=== PATIENT | male | born 1945 | race African-American/Black ===

== ENCOUNTER 2018-11-24 18:09 | Observation (INO) | payer MEDICARE, MEDICAID ==
[2018-11-24] MEDS ORDERED: Dextrose 5% in Water 1,000 ML IV PRN (20:39)
[2018-11-24] MEDS ORDERED: HumaLOG 300 UNITS/3 ML VIAL SC PRN (20:39)
[2018-11-24] MEDS ORDERED: Dextrose 50% Abboject 50 ML SYRINGE SLOW IVP PRN (20:39)
[2018-11-24] MEDS ORDERED: Ondansetron ODT 4 MG TAB PO PRN (20:39)
[2018-11-24] MEDS ORDERED: Acetaminophen 650 MG Suppository PR PRN (20:39)
[2018-11-24] MEDS ORDERED: Ondansetron PF 4 MG/2 ML Vial IVP PRN (20:39)
[2018-11-24] MEDS ORDERED: Morphine 4 MG/ML VIAL ONE (21:09)
--- NOTE | 2018-11-24 21:38 | HP ---
PRIMARY CARE DOCTOR: For this patient is Dr. Caroline Cat. CODE STATUS: Full code. TIME OF EVALUATION: 7:35 p.m. CHIEF COMPLAINT: Chest pain. HISTORY OF PRESENT ILLNESS: A 73-year-old male patient with past medical history of GERD, asthma, diabetes, hypertension, came to the hospital after having chest pain that was in the middle of the chest on and off when severe could be 7/10 that started yesterday radiating down to the left arm, admitted for gradually getting worse. No nausea. No vomiting. No clear triggers. No alleviating factors except for medications given here. REVIEW OF SYSTEMS: CONSTITUTIONAL: No fever, chills, or generalized weakness. RESPIRATORY: No cough, sputum production, or shortness of breath. CARDIOVASCULAR: Chest pain. No palpitation. GASTROINTESTINAL: No nausea, vomiting, diarrhea, or abdominal pain. APPLICATION HELPER: No dizziness, headache, or feeling lightheaded. GENITOURINARY: No burning urination. EXTREMITIES: No leg swelling. All other systems were reviewed and negative except for the findings mentioned above. PAST MEDICAL HISTORY: As mentioned in the HPI. PAST SURGICAL HISTORY: Hernia repair, spinal surgery, and orthopedic surgery left knee. PSYCHIATRIC HISTORY: No previous psych history. SOCIAL HISTORY: The patient drinks socially. Denies drug use. Former tobacco user. The patient quit smoking more than 10 years ago. ALLERGIES: NO KNOWN DRUG ALLERGIES REPORTED. MEDICATIONS: 1. Januvia. 2. Clonidine. 3. Nifedipine. PHYSICAL EXAMINATION: VITAL SIGNS: On presentation; blood pressure 131/69 with heart rate 79, respiratory rate was 18, temperature 98.2, pain 4/10, and oxygen saturation was 99% on room air. GENERAL: The patient is alert, oriented, not in acute distress. HEENT: Eyes, normal conjunctiva. Moist oral mucosa. Anicteric. No JVD. RESPIRATORY: Bilateral air entry. No rales, wheezes or symmetric expansion. CARDIOVASCULAR: Normal rate, regular rhythm. No murmurs. No gallop. No edema. ABDOMEN: Soft. Normal bowel sounds. MUSCULOSKELETAL: Baseline range of motion and strength. No tenderness. SKIN: Warm, intact. No pallor. No rash. No redness. Capillary refill seems to intact. NEUROLOGIC: No evidence of any new focal weakness. Cranial nerves seems to be intact. PSYCHIATRIC: The patient is in good mood. No anxiety. Optimal judgment. IMAGING STUDIES: EKG was reviewed. The patient has normal sinus rhythm with a rate of 77, UT 206, QRS 96, and QT corrected 439. Chest x-ray was reviewed. The patient has findings likely related to lung changes, indeterminate age, procedure, right-sided rib fractures. The fractures are unchanged from prior exam. Osseous region of multiple left-sided ribs are seen again. LABORATORY DATA: Reviewed. The patient has a white count , hemoglobin 9.6, MCV 82.7, platelet count 263. Coagulation; PT 13.6, INR 1.0. Chemistry; sodium 138, potassium 4.4, chloride 102, carbon dioxide 27, anion gap 13, BUN 27, creatinine 1.57, the previous creatinine was 1.13. GFR 53, glucose 105. Hemoglobin A1c 5.1. Uric acid 7.0, calcium 8.8. LFTs were negative. Beta-natriuretic peptide 110 and lipase were normal. ASSESSMENT AND PLAN: The patient will be placed in the hospital with following medical problems. 1. Chest pain, rule out acute coronary syndrome. We will place the patient on tele monitoring. We will do troponins. Initial workup is negative, then do stress test in the morning. 2. Chronic normocytic anemia. The patient's hemoglobin will be monitored. We will treat accordingly. This is mild. 3. Acute kidney injury with current creatinine is 1.57. The previous one was 1.13. Recent increase of more than 0.3 mg/dL from previous values. We will hydrate. We will monitor creatinine and we will treat accordingly. 4. Deep venous thrombosis prophylaxis. 5. History of gastroesophageal reflux disease, reconcile home medications. 6. History of diabetes, is controlled. We will place the patient on sliding scale for optimal control. 7. Controlled hypertension, reconcile home medications. Adjust as needed. Job ID: [id number]
[2018-11-24] MEDS ORDERED: Acetaminophen 325 MG TAB ONE (22:10)
[2018-11-24] MEDS: Sodium Chloride 0.9% 1,000 ML IV SCH (22:16)
[2018-11-24] MEDS: Acetaminophen 325 MG TAB PO PRN (22:17)
[2018-11-24 22:34] LABS: Troponin I Less than 0.010 ng/mL (< 0.028)
[2018-11-25 01:24] LABS: Troponin I Less than 0.010 ng/mL (< 0.028)
[2018-11-25] MEDS ORDERED: Acetaminophen 325 MG TAB ONE ×3 (02:31→13:36)
[2018-11-25] MEDS: Acetaminophen 325 MG TAB PO PRN ×3 (02:35→13:34)
[2018-11-25 04:02] LABS: #Eosinphils 0.5 thou/uL (0.0-0.7); #Lymphocytes 1.5 thou/uL (1.20-3.40); #Monocytes 0.9 thou/uL (0.11-0.59); #Neutrophils 4.4 thou/uL (1.40-6.50); %Basophils 0.7 % (0.0-1.0); %Eosinophils 6.4 % (0.0-10.0); %Monocytes 11.9 % (0.0-10.0); Hemoglobin 10.7 g/dL (14.0-18.0); Mean Corpuscular HGB CONC 32.4 g/dL (32.0-36.0); Mean Corpuscular Hemoglobin 27.5 pg (27.0-31.0); Mean Platelet Volume 8.4 fL (7.4-10.4); Platelet Count 244 thou/uL (130-400); RBC Distribution Width 13.4 % (11.5-14.5); Red Blood Cell (RBC) Count 3.89 mill/uL (4.70-6.10); White Blood Cell (WBC) Count 7.2 thou/uL (4.8-10.8)
[2018-11-25 04:06] LABS: Anion Gap 12 mmol/L (10-20); BUN (Urea Nitrogen) 20 mg/dL (8.4-25.7); Calc. Creatinine Clearance 0 mL/min (70-130); Calcium 9.6 mg/dL (7.8-10.44); Carbon Dioxide 24 mmol/L (23-31); Chloride 107 mmol/L (98-107); Estimated GFR-MDRD 75; Glucose 94 mg/dL (83-110); Potassium 4.2 mmol/L (3.5-5.1); Sodium 139 mmol/L (136-145)
[2018-11-25] MEDS ORDERED: Enoxaparin Sodium 40 MG/0.4 ML SYRINGE SC SCH (09:00)
[2018-11-25] MEDS ORDERED: Regadenoson 0.4 MG/5 ML SYRINGE ONE (09:07)
--- NOTE | 2018-11-25 13:01 | NM ---
EXAM: Nuclear medicine cardiac perfusion examination with ejection fraction HISTORY: Chest pain TECHNIQUE: Rest images: 10.7 mCi technetium 99m sestamibi Stress images: 30.4 mCi of technetium 9M sestamibi; Lexiscan COMPARISON: None FINDINGS: Tomographic images: No fixed or reversible perfusion defects. Gated images: Normal wall motion and ejection fraction of 56%. EDV: 121 mL LHR: 0.5 TID: 0.8 IMPRESSION: No evidence of ischemia
[2018-11-25] MEDS: Sodium Chloride 0.9% 1,000 ML IV SCH (13:25)
[2018-11-25] MEDS ORDERED: cloNIDine 0.1 MG TAB PO PRN (14:03)
[2018-11-25] MEDS ORDERED: cloNIDine 0.1 MG TAB PO SCH (14:15)
[2018-11-25] MEDS ORDERED: NIFEdipine XL 90 MG TAB PO SCH (14:15)
[2018-11-25] MEDS ORDERED: cloNIDine 0.1 MG TAB ONE (14:21)
--- NOTE | 2018-11-26 07:20 | DIS ---
DATE OF ADMISSION: 11/24/2018 DATE OF DISCHARGE: 11/25/2018 DISCHARGE DISPOSITION: Home. FOLLOWUP: Follow up with primary care physician, Dr. Caroline Cat in 1 week. DISCHARGE MEDICATIONS: Same as admission medications. The patient was seen and examined on the day of discharge. Denies any new complaints. No chest pain, shortness of breath palpitations. BRIEF HOSPITAL COURSE: The patient is a 73-year-old male with asthma, diabetes mellitus type 2, hypertension, and GERD, presented to the hospital with chest discomfort. Please refer to the history and physical by Dr. Lubin for further details. The patient was admitted to the hospital with a diagnosis of chest discomfort, rule out acute coronary syndrome. His troponins remain negative. He underwent a Cardiolite stress test that was negative for reversible ischemia. TID was 0.8. His chest pain is probably musculoskeletal. He appears stable for discharge. FINAL DIAGNOSES: 1. Chest discomfort, acute coronary syndrome ruled out. 2. Negative Cardiolite stress test. 3. Chronic anemia. 4. Acute kidney injury on chronic kidney disease, stage 2, probably secondary to mild dehydration, resolved. His creatinine at discharge is 1.16 from 1.57 on admission. 5. Gastroesophageal reflux disease. 6. Diabetes mellitus, type 2. 7. Hypertension. PLAN: Plan of care was discussed with the patient in detail. He stated understanding. Job ID: [id number]
[2018-11-26] MEDS ORDERED: cloNIDine 0.1 MG TAB PO SCH (09:00)
[2018-11-26] MEDS ORDERED: NIFEdipine XL 90 MG TAB PO SCH (09:00)
--- NOTE | 2018-11-28 14:04 | EKG ---
Test Reason : CHEST PAIN Blood Pressure : / mmHG Vent. Rate : 077 BPM Atrial Rate : 077 BPM P-R Int : 206 ms QRS Dur : 096 ms QT Int : 388 ms P-R-T Axes : 042 -15 024 degrees QTc Int : 439 ms Normal sinus rhythm Normal ECG Confirmed by RENAE LEWIS DO ([id number]), news copy editor MINGO SAMANIEGO ([id number]) on 11/28/2018 2:04:30 PM Referred By: Confirmed By:RENAE LEWIS DO
== END 2018-11-25 15:50 | disposition home or self-care (01) ==
LOC: ERS 18:09 → ERHOLD 19:28
PROVIDERS: ADMIT Hospitalist; ATTEND Hospitalist
DX: R07.89 Other chest pain (principal); I12.9 Hypertensive chronic kidney disease with stage 1 through stage 4 chronic kidney disease, or unspecified chronic kidney disease; E11.22 Type 2 diabetes mellitus with diabetic chronic kidney disease; N18.2 Chronic kidney disease, stage 2 (mild); N17.9 Acute kidney failure, unspecified; D63.1 Anemia in chronic kidney disease; E86.0 Dehydration; K21.9 Gastro-esophageal reflux disease without esophagitis; J45.909 Unspecified asthma, uncomplicated; Z98.890 Other specified postprocedural states; Z87.891 Personal history of nicotine dependence; Z79.84 Long term (current) use of oral hypoglycemic drugs; Z79.899 Other long term (current) drug therapy
CPT/HCPCS: 78452; 80048; 84484 ×2; 85025; 93005; 93017; 96374; 99285; A9500; G0378; 36415; J2270; J2785

== ENCOUNTER 2019-02-05 09:28 | Day surgery (SDC) | payer MEDICARE, MEDICAID ==
[2019-02-04 09:27] VITALS: BMI 34.8
[~2019-02-05 09:28] MED LIST: EPINEPHrine 0.3 MG, Dextrose 50% 3 ML in Ophthalmic Irrigation Solution 500 ML FS SCH; Fentanyl 100 MCG/2 ML VIAL ONE; Midazolam HCl 2 mg/2 ml Vial ONE
[2019-02-05] MEDS ORDERED: Phenylephrine 2.5% Ophth Soln 5 ML BOT ONE (09:49)
[2019-02-05] MEDS ORDERED: Cyclopentolate 1% Opth Drop 2 ML BOT ONE (09:49)
--- NOTE | 2019-02-05 12:48 | OP ---
DATE OF PROCEDURE: 02/05/2019 PREOPERATIVE DIAGNOSES: Tractional retinal detachment, glaucoma, vitreous hemorrhage, left eye. POSTOPERATIVE DIAGNOSES: Tractional retinal detachment, glaucoma, vitreous hemorrhage, left eye. PROCEDURES PERFORMED: Pars plana vitrectomy, tube shunt, scleral patch graft, vitrectomy membrane peel, left eye. ANESTHESIA: Local with monitored anesthesia care. PROCEDURE IN DETAIL: The patient was identified in preoperative holding area. Appropriate informed consent for the planned surgical procedure on the left eye had been obtained. The patient was transported to the operative suite. Appropriate cardiopulmonary monitoring was established. Local anesthesia was obtained using retrobulbar modified Van Lint lid block using 50:50 mixture of 4% lidocaine and 0.75% bupivacaine. The patient was prepped and draped in usual sterile manner for ophthalmic surgery, left eye. Lid speculum was placed in the left eye. 25-gauge trocar was placed in conjunctiva and sclera supratemporally, inferotemporally, and supranasally. Infusion line was placed inferotemporally. Light pipe vitreous cutter was inserted into the eye. Core vitrectomy was performed. Vitreous hemorrhage was evacuated from the eye. Tractional elements were removed from the retina and trimmed using end-gripping forceps and vitreous cutter. Panretinal photocoagulation was placed on nonmacular areas of the retina. Hemostasis was obtained by direct application of endolaser, and FP7 tube shunt was positioned subconjunctivally and supratemporally, and tube was run into the posterior chamber via sclerotomy superior temporally. The tube shunt was fixated in place with 5-0 M[place]ilene sutures, and scleral patch graft was fixated over the tube shunt entry site. Conjunctiva was closed with 6-0 plain gut suture. Retrobulbar Kenalog and subconjunctival Ancef were placed. Antibiotic ointment was placed. Eye was patched and shielded. The patient was taken to the postoperative recovery unit in good condition, having suffered no immediate perioperative complications. The patient was instructed to keep patch and shield on. Avoid lifting or bending. Followup appointment with Dr. Salgado. Job ID: [id number]
[2019-02-05] MEDS ORDERED: Lidocaine 4% PF 5 ML AMP ONE (12:52)
[2019-02-05] MEDS ORDERED: PROPOFOL 200 MG/20 ML VIAL ONE (12:52)
[2019-02-05] MEDS ORDERED: CEFAZOLIN 1 GM VIAL ONE (12:52)
[2019-02-05] MEDS ORDERED: Bupivacaine 10 ML VIAL ONE (12:52)
[2019-02-05] MEDS ORDERED: Lidocaine 1% PF 5 ML VIAL ONE (12:52)
[2019-02-05] MEDS ORDERED: Maxitrol 0.1% Opth Oint 3.5 GM TUBE ONE (12:52)
[2019-02-05] MEDS ORDERED: Triamcinolone 40 MG/ML VIAL ONE (12:52)
== END 2019-02-05 12:53 | disposition home or self-care (01) ==
LOC: SDC 09:28
PROVIDERS: ATTEND Ophthalmology Retina Specialist
PROC: 08T53ZZ Resection of Left Vitreous, Percutaneous Approach (ICD-10-PCS; principal; 2019-02-05)
DX: H33.42 Traction detachment of retina, left eye (principal); H40.9 Unspecified glaucoma; H43.12 Vitreous hemorrhage, left eye
CPT/HCPCS: 67113; L8612; J0171; J2250; J3010